=== PATIENT | male | born 2000 | race Caucasian/White ===

== ENCOUNTER 2024-10-10 01:50 | Emergency (ER) | payer OTHER ==
[2024-10-10] MEDS ORDERED: Ketorolac Tromethamine 30 MG (1 mL) VIAL ONE (02:31)
[2024-10-10] MEDS ORDERED: Orphenadrine Citrate 100 MG ER.TAB ONE (03:56)
== END 2024-10-10 04:29 | disposition home or self-care (01) ==
LOC: ERS 01:50
DX: S70.311A Abrasion, right thigh, initial encounter (principal); S50.812A Abrasion of left forearm, initial encounter; M25.551 Pain in right hip; F17.200 Nicotine dependence, unspecified, uncomplicated; V28.99XA Unspecified rider of other motorcycle injured in noncollision transport accident in traffic accident, initial encounter; Y92.415 Exit ramp or entrance ramp of street or highway as the place of occurrence of the external cause
CPT/HCPCS: 72170; 96372; 99284; J1885